=== PATIENT | male | born 1990 ===

== ENCOUNTER 2019-03-07 20:24 | Emergency (ER) | payer SELFPAY ==
[~2019-03-07] VITALS: Ht 182.9 cm; Wt 81.8 kg
[2019-03-07 20:31] VITALS: BP 139/87
== END 2019-03-07 22:30 | disposition left against medical advice (07) ==
LOC: EMS 20:28
DX: R11.2 Nausea with vomiting, unspecified (principal); R10.13 Epigastric pain; Z53.21 Procedure and treatment not carried out due to patient leaving prior to being seen by health care provider